=== PATIENT | female | born 1960 | race Caucasian/White ===

== ENCOUNTER 2022-03-31 00:15 | Day surgery (SDC) | payer OTHER ==
[~2022-03-31 00:15] MED LIST: CRUTCH2 USE; HYDACE5 PO; META800 PO
== END 2022-03-31 23:53 | disposition home or self-care (01) ==
LOC: WOUND 00:15
DX: S91.052D Open bite, left ankle, subsequent encounter (principal); W54.0XXA Bitten by dog, initial encounter; Z88.5 Allergy status to narcotic agent; Z88.0 Allergy status to penicillin; F17.210 Nicotine dependence, cigarettes, uncomplicated
CPT/HCPCS: A9270; G0463

== ENCOUNTER 2022-04-07 00:42 | Day surgery (SDC) | payer OTHER | END 2022-04-07 23:53 | disposition home or self-care (01) | LOC: WOUND 00:42 | DX: S91.052D Open bite, left ankle, subsequent encounter (principal); W54.0XXD Bitten by dog, subsequent encounter | CPT/HCPCS: A9270; G0463 ==

== ENCOUNTER 2022-04-21 04:11 | Day surgery (SDC) | payer OTHER | END 2022-04-21 23:22 | disposition home or self-care (01) | LOC: WOUND 04:11 | DX: S91.052D Open bite, left ankle, subsequent encounter (principal); L97.222 Non-pressure chronic ulcer of left calf with fat layer exposed; W54.0XXD Bitten by dog, subsequent encounter ==

== ENCOUNTER 2022-05-08 01:57 | Day surgery (SDC) | payer OTHER | END 2022-05-08 23:08 | disposition home or self-care (01) | LOC: WOUND 01:57 | DX: S91.052D Open bite, left ankle, subsequent encounter (principal); W54.0XXD Bitten by dog, subsequent encounter | CPT/HCPCS: G0463 ==